=== PATIENT | male | born 1960 | race Caucasian/White ===

== ENCOUNTER 2020-07-24 10:25 | Emergency (ER) | payer OTHER, SELFPAY ==
--- NOTE | 2020-07-24 10:29 | CT_ITS ---
WS: [id number] CT HEAD TECHNIQUE: Noncontrast CT of the head obtained from the skullbase to the vertex. CLINICAL INFORMATION: head injury COMPARISON: None. DLP: 748.[address] scans at [facility] use at least one of these dose optimization techniques: automat ed exposure control; mA and/or kV adjustment per patient size (includes targeted exams where dose is matched to clinical indication); or iterative reconstruction. FINDINGS: No evidence of intracranial hemorrhage or mass effect. Ventricular system and basal cisterns are black nt. Mild small vessel changes with mild parenchymal volume loss. No extra-axial fluid collections. No evidence of mass or mass effect. Normal zamarripa-white differentiation. Soft tissue edema left parietal scalp. No visualized fractures. Fourth ventricle calcification. Paranasal sinuses and mastoid air cells are well aerated. .Normal visualized soft tissues. CT/CT head wo con* [id number] IMPRESSION: 1. No evidence of intracranial hemorrhage or mass effect. 2. Mild small vessel changes. Mild parenchymal volume loss. 3. Left parietal scalp edema 4. No acute intracranial findings.
--- NOTE | 2020-07-24 10:29 | W.ED.HEATRA ---
HPI - Head Injury General: Chief complaint: Head Injury Stated complaint: Hit in the Head/Severe Headache Time Seen by Provider: 07/24/20 10:29 History of Present Illness: HPI Narrative: 59-year-old male patient comes in today for injury to the left parietal scalp. 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 Patient did report brief loss of consciousness. Patient does take omeprazole routinely for gastritis. Patient also reports that he occasionally uses marijuana. Patient denies any chronic medication use or drugs. Patient states that injury occurred about 30 minutes prior to arrival to the ER. Patient has returned to baseline except for a severe headache . Patient appears well. Patient appears in mild pain. MD Complaint: head injury Onset (ago): minute(s) Mechanism of Injury: work related injury Place: work Loss of Consciousness: yes Location of injury: parietal Severity: moderate Quality: aching Radiation: none Associated symptoms: Reports no associated symptoms Review of Systems General: Reports: 10 or more systems reviewed and unremarkable except in HPI and below Skin/Breast: Reports: other (Left side scalp laceration) Neuro: Reports: other (Headache with brief loss of consciousness after head injury) PFS ED PFSH: Social History (Updated 06/14/19 @ 15:51 by Luisana Zuniga LPN) Smoking and tobacco status: current every day smoker Physical Exam Const: COMMON NORMALS: no acute distress and patient oriented x3 GENERAL APPEARANCE: cooperative HENMT: COMMON NORMALS: TM's normal bilaterally and Normal external nose present NOSE: Normal external nose present TYMPANIC MEMBRANE: TM's normal bilaterally MOUTH: Normal oral and palatal mucosa present THROAT: posterior oropharynx normal OTHER: 5mm laceration to the left parietal scalp, no crepitus to the wound area, Eye: GENERAL EYE: appearance normal, both eyes and all related structures Neck/C-Spine: COMMON NORMALS: full ROM Chest: COMMONS NORMALS: normal inspection of the chest Resp: COMMON NORMALS: normal respiratory effort EFFORT & INSPECTION: Yes able to speak in complete sentences Cardio: COMMON NORMALS: regular rate and regular rhythm RATE: regular rate RHYTHM: regular rhythm GI: COMMON NORMALS: non-tender Back/Pelvis: COMMON NORMALS: thoracic and lumbar spine normal to inspection Extremity: COMMON NORMALS: normal to inspection Neuro: COMMON NORMALS: patient oriented x3 and moves all extremities Psych: COMMON NORMALS: mental status grossly normal and cooperative Skin: COMMON NORMALS: no rashes or lesions noted GENERAL SKIN EXAM: no rashes or lesions noted Course Vital Signs: Vital signs: Vital Signs Temperature 97.7 F 07/24/20 10:31 Pulse Rate 81 07/24/20 10:31 Respiratory Rate 14 07/24/20 10:31 Blood Pressure 166/102 07/24/20 10:31 Pulse Oximetry 97 07/24/20 10:31 MDM - Head Injury MDM Narrative: Medical decision making narrative: 59-year-old male patient comes in today with complaints of head injury with brief loss of consciousness. Injury occurred about 30 minutes prior to arrival to the ER. Patient has fully recovered except for a headache on arrival to the ER. On exam we note a 5 mm laceration to the left parietal scalp. No crepitus along the injury border. Differential diagnosis includes but not limited to concussion, intracranial bleeding, scalp laceration, hematoma. CT scan of the head indicated no intracranial or intercerebral bleeding. There is also no fracture noted. Reviewed exam with patient with recommendations for treatment and follow-up. Patient reported understanding and agreed to plan. Discharge Plan Discharge Patient Disposition: Home Clinical Impression: Head injury, acute, with loss of consciousness Qualifiers: Encounter type: initial encounter Qualified Code(s): S06.9X9A - Unspecified intracranial injury with loss of consciousness of unspecified duration, initial encounter Superficial laceration of scalp Qualifiers: Encounter type: initial encounter Qualified Code(s): S01.01XA - Laceration without foreign body of scalp, initial encounter Condition: Stable Prescriptions: No Action omeprazole 20 mg capsule,delayed release(DR/EC) 20 mg PO DAILY RF: 0 ibuprofen 800 mg tablet 1,600 mg PO DAILY RF: 0 cyclobenzaprine 10 mg tablet 10 mg PO Q8H RF: 0 Symbicort 160-4.5 mcg/actuation HFA aerosol inhaler 2 puff INHALATION BID RF: 0 albuterol sulfate [ProAir HFA] 90 mcg/actuation HFA aerosol inhaler 2 puff INHALATION Q6H PRNRF: 0 aspirin [Adult Aspirin Regimen] 81 mg tablet,delayed release (DR/EC) 81 mg PO DAILY RF: 0 Discharge Orders: Discharge ED (Routine); Ordered 07/24/20 Ordered By: Alireza Esqueda Discharge Diet: Usual diet Discharge Activity: Increase activity as tolerated Patient Instructions: Minor Head Injury (ED), Opioid Safety Activity Restrictions/Additional Instructions: Use acetaminophen or ibuprofen for pain. Use ice to the area for further comfort relief. Activity as tolerated. I would recommend light activity for the next 7 days until headache is completely resolved. Follow-up with primary care in 1 week for recheck of symptoms and released to return to normal activity. Stand Alone Forms: Work/School Release Coding Level of Care Code ED Manager Business Intelligence for Chg Fwd Exam Comprehensive
[2020-07-24 10:31] VITALS: BP 166/102; PULSE 81; RESP 14; TEMP 36.5; O2SAT 97; BMI 20.9
[2020-07-24 11:23] VITALS: BP 152/90; PULSE 76; RESP 17; O2SAT 96
== END 2020-07-24 11:24 | disposition home or self-care (01) ==
PROVIDERS: Emergency Provider Nurse Practitioner Family
DX: S01.01XA Laceration without foreign body of scalp, initial encounter (principal); S06.9X9A Unspecified intracranial injury with loss of consciousness of unspecified duration, initial encounter; Z79.82 Long term (current) use of aspirin; F17.210 Nicotine dependence, cigarettes, uncomplicated; W20.8XXA Other cause of strike by thrown, projected or falling object, initial encounter
CPT/HCPCS: 70450; 99282

== ENCOUNTER 2020-10-23 08:40 | Emergency (ER) | payer OTHER, SELFPAY ==
--- NOTE | 2020-10-23 08:46 | XRR_ITS ---
PROCEDURE INFORMATION: Exam: XR Chest Exam date and time: 10/23/2020 8:46 AM Age: 60 years old Clinical indication: Pain; Angina pectoris; Additional info: Chest pain TECHNIQUE: Imaging protocol: XR of the chest. Views: 1 view. COMPARISON: No relevant prior studies available. FINDINGS: Lungs: Unremarkable. No consolidation. Pleural spaces: Unremarkable. No pleural effusion. No pneumothorax. Heart/Mediastinum: Unremarkable. No cardiomegaly. Bones/joints: Unremarkable. XR/XR chest 1V portable [id number] IMPRESSION: No acute findings.
[2020-10-23 08:51] VITALS: BP 155/89; PULSE 76; RESP 19; TEMP 36.8; O2SAT 99
--- NOTE | 2020-10-23 08:59 | W.ED.SOB ---
HPI - SOB/Dyspnea General: Chief Complaint: Chest Pain Stated Complaint: CP/SOB/FATIGUE SENT FROM [place] Time Seen by Provider: 10/23/20 08:45 Source: patient Mode of arrival: ambulatory Limitations: no limitations History of Present Illness: HPI Narrative: Patient is a nice 60-year-old gentleman here for complaints of shortness of breath that has been present over the past week. He states symptoms seem to be progressively worsening. He tells me he is becoming very winded with activities in which he normally would not be. He is an every day smoker. He believes he most likely has COPD however this is not officially ever been diagnosed. He does not wear oxygen at home. He does report an increased cough. This morning he became concerned when he began having some chest pain-he states it felt like his heart was racing . Patient reports no history of cardiac disease but does have a family history. He has not been running fevers. MD elicited complaint: shortness of breath, cough and chest pain Pertinent past history: COPD (possible-never officially diagnosed ) Onset (ago): day(s) Exacerbating factors: exertion Relieving factors: rest Associated symptoms: Reports chest congestion and chest pain; Deny abdominal pain, dizziness, fever(s), hemoptysis, lightheadedness, nausea, orthopnea, palpitations, syncope or vomiting Treatment prior to arrival: none Related Data: Home oxygen amount: none Review of Systems Const: Reports: chills (last nigh) and body aches (states he always hurts but attributes this to working); Denies: fever(s), change in appetite, change in weight, fatigue or malaise ENMT: Denies: throat pain, odynophagia, nasal discharge or nasal congestion Card: Reports: chest pain and dyspnea on exertion; Denies: palpitations, edema, swelling of feet/ankles, lightheadedness, syncope, pre-syncope, orthopnea, leg pain with exertion or acrocyanosis Resp: Reports: dyspnea, productive cough and chest congestion; Denies: wheezing, pain on inspiration or hemoptysis GI: Denies: abdominal pain, nausea, vomiting or diarrhea Musc: Denies: neck pain or back pain Skin/Breast: Denies: rash Neuro: Denies: headache(s), numbness in extremities, weakness in extremities, sensory changes or dizziness PFSH ED PFSH: Social History (Updated 06/14/19 @ 15:51 by Luisana Zuniga LPN) Smoking and tobacco status: current every day smoker Physical Exam Const: COMMON NORMALS: no acute distress, average body habitus, patient oriented x3, no limitations, alert and well nourished GENERAL APPEARANCE: cooperative ORIENTATION/CONSCIOUSNESS: Yes awake, Yes oriented to person, Yes oriented to place and Yes oriented to time HENMT: COMMON NORMALS: normocephalic and atraumatic HEAD & SCALP: normocephalic and atraumatic Resp: COMMON NORMALS: normal respiratory effort and clear to auscultation bilaterally AUSCULTATION: clear to auscultation bilaterally Cardio: COMMON NORMALS: regular rate and regular rhythm RATE: regular rate RHYTHM: regular rhythm Extremity: COMMON NORMALS: capillary refill normal, no clubbing, cyanosis or edema, no calf tenderness and no pedal edema Neuro: COMMON NORMALS: patient oriented x3 SENSORIUM/ORIENTATION: Yes alert, Yes oriented to person, Yes oriented to place and Yes oriented to time Skin: COMMON NORMALS: no rashes or lesions noted GENERAL SKIN EXAM: no rashes or lesions noted Course Vital Signs: Vital signs: Vital Signs Temperature 98.4 F 10/23/20 10:00 Pulse Rate 73 10/23/20 12:53 Respiratory Rate 24 H 10/23/20 10:00 Blood Pressure 144/91 10/23/20 12:53 Pulse Oximetry 99 10/23/20 12:53 MDM - SOB/Dyspnea MDM Narrative: Medical decision making narrative: Patient clinically is non-ill and nontoxic appearing. He appears in no respiratory distress. Patient CBC and CMP are non-concerning. He has normal procalcitonin. Baseline troponin is normal. He did have an elevated D-dimer at over 2.0. CTA showing no PE. Initial EKG and repeat show no ischemic changes. Rapid COVID is negative. PCR pending. CXR showing chronic emphysema but no acute changes. At this time we will treat for possible COPD exacerbation with steroids and antibiotics. Patient has inhaled corticosteroids and albuterol at home. Recommend close follow-up with his PCP if symptoms persist or worsen. He may return to the ED for severe symptoms. Lab Data: Labs: Lab Results 10/23/20 10/23/20 10/23/20 Range/Units 09:20 09:20 09:20 WBC 6.8 (4.0-10.0) 10^3/ uL RBC 4.48 (4.1-5.3) 10^6/u L Hgb 13.9 (11.7-16.6) g/dL Hct 41.9 L (42.0-52.0) % MCV 93.5 (80-94) fL MCH 31.0 (28.0-34.0) pg MCHC 33.2 (30.0-36.0) g/dL RDW 14.1 (12.1-15.1) % Plt Count 289 (130-400) 10^3/c mm MPV 8.6 (7.4-10.4) fL Neut % (Auto) 68.0 % Lymph % (Auto) 19.7 % [place] % (Auto) 10.1 % Eos % (Auto) 1.2 % Baso % (Auto) 0.9 % Neut # (Auto) 4.60 (1.8-7.7) 10^3/u L Lymph # (Auto) 1.3 (0.8-4.8) 10^3/u L [place] # (Auto) 0.7 (0.2-0.9) 10^3/u L Eos # (Auto) 0.1 (0.0-0.8) 10^3/u L Baso # (Auto) 0.1 (0.0-0.1) 10^3/u L Nucleated RBC % (a uto) 0 % Nucleated RBCs # 0.0 /100WBC D-Dimer (0-0.59) ug/mIFE U Sodium 138 (136-145) mmol/L Potassium 4.4 (3.5-5.1) mmol/L Chloride 101 (98-107) mmol/L Carbon Dioxide 18 L (22-29) mmol/L Anion Gap 23.4 H (5-19) BUN 11 (6-20) mg/dL Creatinine 0.7 (0.7-1.2) mg/dL GFR Calculation 115.4 (90-130) mL/min Glucose 67 (65-115) mg/dL Calculated Osmolal ity 284 L (285-295) mOsm/k g Calcium 8.3 L (8.5-10.5) mg/dL Total Bilirubin 0.4 (0.15-1.2) mg/dL AST 40 (0-40) U/L ALT 20 (0-41) U/L Alkaline Phosphata se 68 (40-130) IU/L Troponin T Baselin e 11 (0-15) ng/L Total Protein 7.6 (6.6-8.7) g/dL Albumin 4.2 (3.5-5.2) g/dL Globulin 3.4 (1.3-4.6) g/dL Procalcitonin 0.07 (0-0.5) ng/mL SARS-CoV-2 Ag (Rap id) (Negative) 10/23/20 10/23/20 Range/Units 09:20 09:25 WBC (4.0-10.0) 10^3/ uL RBC (4.1-5.3) 10^6/u L Hgb (11.7-16.6) g/dL Hct (42.0-52.0) % MCV (80-94) fL MCH (28.0-34.0) pg MCHC (30.0-36.0) g/dL RDW (12.1-15.1) % Plt Count (130-400) 10^3/c mm MPV (7.4-10.4) fL Neut % (Auto) % Lymph % (Auto) % [place] % (Auto) % Eos % (Auto) % Baso % (Auto) % Neut # (Auto) (1.8-7.7) 10^3/u L Lymph # (Auto) (0.8-4.8) 10^3/u L [place] # (Auto) (0.2-0.9) 10^3/u L Eos # (Auto) (0.0-0.8) 10^3/u L Baso # (Auto) (0.0-0.1) 10^3/u L Nucleated RBC % (a uto) % Nucleated RBCs # /100WBC D-Dimer 2.07 H (0-0.59) ug/mIFE U Sodium (136-145) mmol/L Potassium (3.5-5.1) mmol/L Chloride (98-107) mmol/L Carbon Dioxide (22-29) mmol/L Anion Gap (5-19) BUN (6-20) mg/dL Creatinine (0.7-1.2) mg/dL GFR Calculation (90-130) mL/min Glucose (65-115) mg/dL Calculated Osmolal ity (285-295) mOsm/k g Calcium (8.5-10.5) mg/dL Total Bilirubin (0.15-1.2) mg/dL AST (0-40) U/L ALT (0-41) U/L Alkaline Phosphata se (40-130) IU/L Troponin T Baselin e (0-15) ng/L Total Protein (6.6-8.7) g/dL Albumin (3.5-5.2) g/dL Globulin (1.3-4.6) g/dL Procalcitonin (0-0.5) ng/mL SARS-CoV-2 Ag (Rap id) Negative (Negative) Imaging Data^: CXR: My impression: most likely emphysematous changes; no acute findings Radiologist's impression: [address] [address]JUcl ReportSigned Patient: Rogelio Knott IIUnit #: [id number]: 1960cct#:[id number]/Sex: 60 / MADM Date: 10/23/20[facility] Dr: Ordering Provider/Ordering MD: Sharifa Glynn Date of Service: 10/23/20 Procedure(s): XR chest 1V portable [id number] Accession Number(s): [id number] Report Number: [id number] PROCEDURE INFORMATION: Exam: XR Chest Exam date and time: 10/23/2020 8:46 AM Age: 60 years old Clinical indication: Pain; Angina pectoris; Additional info: Chest pain TECHNIQUE: Imaging protocol: XR of the chest. Views: 1 view. COMPARISON: No relevant prior studies available. FINDINGS: Lungs: Unremarkable. No consolidation. Pleural spaces: Unremarkable. No pleural effusion. No pneumothorax. Heart/Mediastinum: Unremarkable. No cardiomegaly. Bones/joints: Unremarkable. XR/XR chest 1V portable [id number] IMPRESSION: No acute findings. Dictated By:Jose Dickson MDSigned By:Jose Dickson MDSigned Date/Time:10/23/20 1009DD/ 1008 CTA Chest: Radiologist's impression: [address] [address] [address] Scan Report Signed Patient: Rogelio Knott II Unit #: [id number] : 1960 Age/Sex: 60 / M ADM Date: 10/23/20 Loc: ER Room/Bed: Attending Dr: Ordering Provider/Ordering MD: Sharifa Glynn Date of Service: 10/23/20 Procedure(s): CT angio chest PE protcl [id number] Accession Number(s): [id number] Report Number: [id number] WS: [id number] CTA OF THE CHEST WITH PULMONARY EMBOLISM PROTOCOL TECHNIQUE: High-resolution contrast enhanced CTA of the chest with coronal and sagittal reformatted images with pulmonary embolism protocol. MIP images are also reviewed. CLINICAL INFORMATION: SOB, elevated d dimer COMPARISON: None. DLP: 547.[address] scans at [facility] use at least one of these dose optimization techniques: automated exposure control; mA and/or kV adjustment per patient size (includes targeted exams where dose is matched to clinical indication); or iterative reconstruction. FINDINGS: Mild chronic emphysematous changes. No acute pulmonary infiltrates. No focal consolidation or pleural fluid. Proximal main pulmonary arteries are normal. Normal segmental and subsegmental pulmonary arteries. No evidence of pulmonary embolus. Normal caliber thoracic aorta. No mediastinal or hilar lymphadenopathy. Adrenal glands are normal. Cholecystectomy clips. CT/CT angio chest PE protcl [id number] IMPRESSION: 1. Proximal main pulmonary arteries are normal. No evidence of pulmonary embolus. 2. Mild chronic emphysematous changes. No acute pulmonary infiltrates. No focal pneumonia or pleural fluid. 3. Prior cholecystectomy. Dictated By: Miguel Medrano MD Signed By: Miguel Medrano MD Signed Date/Time: 10/23/20 1230 DD/ 1220 EKG Data^: EKG 1: EKG Interpretation Date: 10/23/20 EKG interpretation time: 08:54 Interpretation: Sinus rhythm with sinus arrhythmia Rate [address] elevation or depression changes noted EKG 2: EKG Interpretation Date: 10/23/20 Interpretation: Sinus rhythm Rate [address] elevation or depression changes noted No changes noted when compared to EKG performed earlier on same visit Discharge Plan Discharge Patient Disposition: Home Clinical Impression: Acute bacterial bronchitis Condition: Stable Prescriptions: New dexamethasone 6 mg tablet 6 mg PO DAILY Qty: 6 RF: 0 levofloxacin 500 mg tablet 500 mg PO DAILY 7 Days Qty: 7 RF: 0 No Action omeprazole 20 mg capsule,delayed release(DR/EC) 20 mg PO DAILY RF: 0 ibuprofen 800 mg tablet 1,600 mg PO DAILY RF: 0 cyclobenzaprine 10 mg tablet 10 mg PO Q8H RF: 0 Symbicort 160-4.5 mcg/actuation HFA aerosol inhaler 2 puff INHALATION BID RF: 0 albuterol sulfate [ProAir HFA] 90 mcg/actuation HFA aerosol inhaler 2 puff INHALATION Q6H PRNRF: 0 aspirin [Adult Aspirin Regimen] 81 mg tablet,delayed release (DR/EC) 81 mg PO DAILY RF: 0 Discharge Orders: Discharge ED (Routine); Ordered 10/23/20 Ordered By: Sharifa Glynn Activity Restrictions/Additional Instructions: As we discussed you need to quarantine until your PCR COVID results return. If negative you may return to work. If positive you need to quarantine for a full 10 days starting at symptom onset. You may follow-up with primary care in 3 to 5 days if symptoms persist or are not improving. He may return to the emergency department for severe shortness of breath or difficulty breathing. Coding Level of Care Code ED Salon Customer Experience Specialist for Esmer Black Exam Detailed
[2020-10-23 09:26] VITALS: BP 150/90; O2SAT 98
[2020-10-23 09:35] LABS: Basophils # 0.1 10^3/uL (0.0-0.1); Basophils % 0.9 %; Eosinophils # 0.1 10^3/uL (0.0-0.8); Eosinophils % 1.2 %; Hematocrit 41.9 % (42.0-52.0); Hemoglobin 13.9 g/dL (11.7-16.6); Lymphocytes # 1.3 10^3/uL (0.8-4.8); Lymphocytes % 19.7 %; Mean Corpuscular HGB Conc 33.2 g/dL (30.0-36.0); Mean Corpuscular Volume 93.5 fL (80-94); Mean Platelet Volume 8.6 fL (7.4-10.4); Monocytes # 0.7 10^3/uL (0.2-0.9); Monocytes % 10.1 %; Nucleated Red Blood Cells % 0 %; Platelet Count 289 10^3/cmm (130-400); Red Blood Count 4.48 10^6/uL (4.1-5.3); Red Cell Distribution Width 14.1 % (12.1-15.1); White Blood Count 6.8 10^3/uL (4.0-10.0)
[2020-10-23 09:50] LABS: D Dimer 2.07 ug/mIFEU (0-0.59)
[2020-10-23 10:00] VITALS: BP 146/92; PULSE 75; RESP 24; TEMP 36.9; O2SAT 98
--- NOTE | 2020-10-23 10:01 | CT_ITS ---
WS: [id number] CTA OF THE CHEST WITH PULMONARY EMBOLISM PROTOCOL TECHNIQUE: High-resolution contrast enhanced CTA of the chest with coronal and sagittal reformatted i mages with pulmonary embolism protocol. MIP images are also reviewed. CLINICAL INFORMATION: SOB, elevated d dimer COMPARISON: None. DLP: 547.[address] scans at [facility] use at least one of these dose optimization techniques: automat ed exposure control; mA and/or kV adjustment per patient size (includes targeted exams where dose is matched to clinical indication); or iterative reconstruction. FINDINGS: Mild chronic emphysematous changes. No acute pulmonary infiltrates. No focal consolidation or pleural fluid. Proximal main pulmonary arteries are normal. Normal segmental and subsegmental pulmonary arteries. No evidence of pulmonary embolus. Normal caliber thoracic aorta. No mediastinal or hilar lymphadenopathy. Adrenal glands are normal. Ch olecystectomy clips. CT/CT angio chest PE protcl [id number] IMPRESSION: 1. Proximal main pulmonary arteries are normal. No evidence of pulmonary embol us. 2. Mild chronic emphysematous changes. No acute pulmonary infiltrates. No foca l pneumonia or pleural fluid. 3. Prior cholecystectomy.
[2020-10-23 10:02] LABS: Troponin(5th) Baseline 11 ng/L (0-15)
[2020-10-23 10:09] LABS: Procalcitonin 0.07 ng/mL (0-0.5)
[2020-10-23 10:11] LABS: SARS Covid-2 Antigen Negative (Negative)
[2020-10-23 10:20] LABS: Albumin Level 4.2 g/dL (3.5-5.2); Blood Urea Nitrogen 11 mg/dL (6-20); Globulin 3.4 g/dL (1.3-4.6); Glomerular Filtration Rate 115.4 mL/min (90-130); Glucose 67 mg/dL (65-115); Total Bilirubin 0.4 mg/dL (0.15-1.2); Total Protein 7.6 g/dL (6.6-8.7)
[2020-10-23 10:39] LABS: Alanine Aminotransferase 20 U/L (0-41); Alkaline Phosphatase 68 IU/L (40-130); Aspartate Amino Transferase 40 U/L (0-40); Chloride 101 mmol/L (98-107); Osmolality Calculated 284 mOsm/kg (285-295); Potassium 4.4 mmol/L (3.5-5.1); Sodium 138 mmol/L (136-145)
[2020-10-23 10:42] LABS: Anion Gap 23.4 (5-19); Calcium 8.3 mg/dL (8.5-10.5); Carbon Dioxide 18 mmol/L (22-29)
--- NOTE | 2020-10-23 10:46 | ECG_ITS ---
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 Measurements Intervals [place] Rate: 64 P: 77 WI: 151 QRS: 64 QRSD: 84 T: 74 QT: 398 QTc: 413 Interpretive Statements SINUS RHYTHM No previous ECG available for comparison Electronically Signed On 10-23-2020 17:32:15 CDT by Alfie Medeiros M.D. [id number]
[2020-10-23] MEDS: iohexol 350 mg/mL 100 mL Btl IV (12:16)
[2020-10-23 12:30] VITALS: BP 151/87; PULSE 74; O2SAT 97
[2020-10-23 12:53] VITALS: BP 144/91; PULSE 73; O2SAT 99
[2020-10-24 14:14] LABS: Coronavirus Test Green County Not Detected
--- NOTE | 2020-10-24 18:02 | PC.NURSE ---
PT CALLED AND GIVEN THE RESULTS OF HIS COVID TEST
== END 2020-10-23 12:50 | disposition home or self-care (01) ==
PROVIDERS: Emergency Provider Physician Assistant
DX: J20.9 Acute bronchitis, unspecified (principal); Z79.82 Long term (current) use of aspirin; F17.210 Nicotine dependence, cigarettes, uncomplicated; Z20.822 Contact with and (suspected) exposure to COVID-19
CPT/HCPCS: 71045; 71275; 80053; 84145; 84484; 85025; 85378; 87426; 87635; 93005; 99283; Q9967

== ENCOUNTER → 2020-11-13 09:00 | Outpatient (BNVA) | payer OTHER, SELFPAY | PROVIDERS: Visit Provider Nurse Practitioner Family | DX: Z20.822 Contact with and (suspected) exposure to COVID-19 (principal) | CPT/HCPCS: 87426 ==

== ENCOUNTER 2022-04-19 19:23 | Emergency (ER) | payer OTHER, SELFPAY ==
[2022-04-19 19:28] VITALS: BMI 22.5
--- NOTE | 2022-04-19 19:44 | CTR_ITS ---
PROCEDURE INFORMATION: Exam: CT Head Without Contrast Exam date and time: 04/19/2022 8:42 PM Age: 61 years old Clinical indication: Injury or trauma; Other: Hit in head with piece of lumber; Blunt trauma (contusions or hematomas); Consciousness not specified; Additional info: Head injury TECHNIQUE: Imaging protocol: Computed tomography of the head without contrast. Radiation optimization: All CT scans at this facility use at least one of these dose optimization techniques: automated exposure control; mA and/or kV adjustment per patient size (includes targeted exams where dose is matched to clinical indication); or iterative reconstruction. Other protocol: This patient has received 0 known CTs and 0 known cardiac nuclear medicine studies in the 12 months prior to the current study. COMPARISON: CT head wo con* [id number] 07/24/2020 10:44 AM RADIATION DOSE METRICS: Total DLP (mGy-cm): 1146.98 FINDINGS: Brain: Moderate periventricular white matter low densities are most consistent with chronic small vessel ischemic change. No findings of intracranial hemorrhage. Cerebral ventricles: No ventriculomegaly. Paranasal sinuses: Retention cyst is seen in right maxillary sinus and there is mild sinus mucosal thickening. No evident free fluid. Mastoid air cells: Visualized mastoid air cells are well aerated. Bones/joints: No acute findings. Soft tissues: Unremarkable. CT/CT head wo con* [id number] IMPRESSION: No acute intracranial abnormality.
--- NOTE | 2022-04-19 19:44 | ECG_ITS ---
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 Measurements Intervals [place] Rate: 82 P: 76 NE: 156 QRS: 65 QRSD: 87 T: 78 QT: 375 QTc: 438 Interpretive Statements SINUS RHYTHM Compared to ECG 10/23/2020 10:57:18 No significant changes Electronically Signed On 04-19-2022 23:24:39 WEED ERADICATOR by Alfie Medeiros M.D. [email or web address]Ltdlackey memorial hospitalTeleFlipmount [email or web address]/store/[id number]
[2022-04-19 21:17] LABS: Basophils # 0.1 10^3/uL (0.0-0.1); Basophils % 0.8 %; Eosinophils # 0.4 10^3/uL (0.0-0.8); Eosinophils % 4.4 %; Hematocrit 43.4 % (42.0-52.0); Hemoglobin 14.4 g/dL (11.7-16.6); Lymphocytes % 20.6 %; Mean Corpuscular HGB Conc 33.2 g/dL (30.0-36.0); Mean Corpuscular Hemoglobin 29.6 pg (28.0-34.0); Mean Corpuscular Volume 89.3 fl (80-94); Mean Platelet Volume 8.7 fL (7.4-10.4); Monocytes # 0.9 10^3/uL (0.2-0.9); Monocytes % 8.7 %; Neutrophils # 6.32 10^3/uL (1.8-7.7); Neutrophils % 64.6 %; Nucleated Red Blood Cells % 0 %; Platelet Count 314 10^3/cmm (130-400); Red Blood Count 4.86 10^6/uL (4.1-5.3); Red Cell Distribution Width 13.1 % (12.1-15.1); White Blood Count 9.8 10^3/uL (4.0-10.0)
[2022-04-19 21:45] LABS: Alanine Aminotransferase 18 U/L (0-41); Albumin Level 4.3 g/dL (3.5-5.2); Alkaline Phosphatase 126 U/L (40-130); Anion Gap 20.3 (5-19); Aspartate Amino Transferase 21 U/L (0-40); Blood Urea Nitrogen 8 mg/dL (8-23); Calcium 9.7 mg/dL (8.5-10.5); Carbon Dioxide 22 mmol/L (22-29); Chloride 98 mmol/L (98-107); Globulin 3.3 g/dL (1.3-4.6); Glomerular Filtration Rate 86.1 mL/min (90-130); Glucose 104 mg/dL (65-115); Osmolality Calculated 283 mOsm/kg (285-295); Potassium 3.3 mmol/L (3.5-5.1); Sodium 137 mmol/L (136-145); Total Bilirubin 0.7 mg/dL (0.15-1.2); Total Protein 7.6 g/dL (6.6-8.7)
--- NOTE | 2022-04-19 21:52 | ED_ITS ---
HPI - Syncope General: Chief Complaint: Syncope Stated Complaint: fall, hit head and passed out Time Seen by Provider: 04/19/22 20:39 Source: patient Mode of arrival: ambulatory Limitations: no limitations History of Present Illness: 61-year-old male states that yesterday he had had a syncopal episode he believes is unsure if he actually tripped and fell and hit his head and passed out or passed out first states that he did hit his head on a counter he states since then he had some lightheadedness and a headache he rates a 5 out of 10 he does have chronic headaches well denies any chest pain he is amatory no difficulty denies any other complaints. Associated symptoms: Reports headache(s); Deny abdominal pain, fever(s) or nausea Review of Systems Const: Denies: fever(s), chills, body aches or change in appetite Eyes: Denies: blurry vision or eye discomfort ENMT: Denies: throat pain or dental pain Card: Reports: syncope Resp: Denies: dyspnea GI: Denies: abdominal pain, nausea, vomiting or diarrhea : Denies: dysuria Musc: Denies: neck pain or back pain Skin/Breast: Denies: rash Neuro: Reports: headache(s) Psych: Denies: depression Ham/Lymph: Denies: easy bruising All/Imm: Denies: urticaria PFS ED PFSH: Medical History (Updated 04/19/22 @ 21:57 by Masha Villanueva MD) No pertinent past medical history Social History Smoking and tobacco status: current every day smoker Alcohol intake: current Alcohol intake frequency: 0-2 Drinks per Day Physical Exam Const: COMMON NORMALS: no acute distress, patient oriented x3 and healthy appearing HENMT: COMMON NORMALS: normocephalic and atraumatic HEAD & SCALP: normocephalic and atraumatic Eye: COMMON NORMALS: Equal, round and reactive pupils present and EOMs intact bilaterally PUPIL: Yes Equal, round and reactive pupils present Neck/C-Spine: COMMON NORMALS: full ROM and supple Chest: COMMONS NORMALS: normal inspection of the chest and normal palpation of entire chest wall Resp: COMMON NORMALS: normal respiratory effort, No retractions, No use of accessory muscles and clear to auscultation bilaterally AUSCULTATION: clear to auscultation bilaterally Cardio: COMMON NORMALS: regular rate, regular rhythm and No murmurs present (Cardio) RATE: regular rate RHYTHM: regular rhythm GI: COMMON NORMALS: Normal to inspection, nondistended, normoactive bowel sounds present, Soft to palpation, non-tender and no masses PALPATION: Yes Soft to palpation Extremity: COMMON NORMALS: normal to inspection and full ROM Neuro: COMMON NORMALS: patient oriented x3, moves all extremities and no focal motor deficits Psych: COMMON NORMALS: mental status grossly normal, Normal thought process present and cooperative THOUGHT PROCESS: Normal thought process present Skin: COMMON NORMALS: no rashes or lesions noted and no wounds GENERAL SKIN EXAM: no rashes or lesions noted MDM - Syncope Medical Decision Making Patient presents here with a closed head injury along with a syncopal event patient's blood work EKG were all normal his head CT is normal as well he is stable for discharge he is to follow-up with PCP and return if worsening. Lab Data 04/19/22 21:05 04/19/22 21:[address] 04/19/22 19:44 IMPRESSION: No acute intracranial abnormality. Laboratory Results WBC 9.8 10^3/uL (4.0-10.0) 04/19/22 21:05 RBC 4.86 10^6/uL (4.1-5.3) 04/19/22 21:05 Hgb 14.4 g/dL (11.7-16.6) 04/19/22 21: Hct 43.4 % (42.0-52.0) 04/19/22 21: MCV 89.3 fl (80-94) 04/19/22 21:05 MCH 29.6 pg (28.0-34.0) 04/19/22 21: MCHC 33.2 g/dL (30.0-36.0) 04/19/22 21: RDW 13.1 % (12.1-15.1) 04/19/22 21:05 Plt Count 314 10^3/cmm (130-400) 04/19/22 21: MPV 8.7 fL (7.4-10.4) 04/19/22 21:05 Neut % (Auto) 64.6 % 04/19/22 21:05 Lymph % (Auto) 20.6 % 04/19/22 21:05 [place] % (Auto) 8.7 % 04/19/22 21:05 Eos % (Auto) 4.4 % 04/19/22 21:05 Baso % (Auto) 0.8 % 04/19/22 21:05 Neut # (Auto) 6.32 10^3/uL (1.8-7.7) 04/19/22 21:05 Lymph # (Auto) 2.0 10^3/uL (0.8-4.8) 04/19/22 21:05 [place] # (Auto) 0.9 10^3/uL (0.2-0.9) 04/19/22 21:05 Eos # (Auto) 0.4 10^3/uL (0.0-0.8) 04/19/22 21:05 Baso # (Auto) 0.1 10^3/uL (0.0-0.1) 04/19/22 21:05 Nucleated RBC % (auto) 0 % 04/19/22 21:05 Nucleated RBCs # 0.0 /100WBC 04/19/22 21:05 Sodium 137 mmol/L (136-145) 04/19/22 21:05 Potassium 3.3 mmol/L (3.5-5.1) L 04/19/22 21:05 Chloride 98 mmol/L (98-107) 04/19/22 21:05 Carbon Dioxide 22 mmol/L (22-29) 04/19/22 21:05 Anion Gap 20.3 (5-19) H 04/19/22 21:05 BUN 8 mg/dL (8-23) 04/19/22 21:05 Creatinine 0.9 mg/dL (0.7-1.2) 04/19/22 21:05 GFR Calculation 86.1 mL/min (90-130) L 04/19/22 21:05 Glucose 104 mg/dL (65-115) 04/19/22 21:05 Calculated Osmolality 283 mOsm/kg (285-295) L 04/19/22 21:05 Calcium 9.7 mg/dL (8.5-10.5) 04/19/22 21:05 Total Bilirubin 0.7 mg/dL (0.15-1.2) 04/19/22 21:05 AST 21 U/L (0-40) 04/19/22 21:05 ALT 18 U/L (0-41) 04/19/22 21:05 Alkaline Phosphatase 126 U/L (40-130) 04/19/22 21:05 Total Protein 7.6 g/dL (6.6-8.7) 04/19/22 21:05 Albumin 4.3 g/dL (3.5-5.2) 04/19/22 21:05 Globulin 3.3 g/dL (1.3-4.6) 04/19/22 21:05 Discharge Plan Discharge Patient Disposition: Home Clinical Impression: Head injury, Syncope Condition: Stable Prescriptions: No Action omeprazole 20 mg capsule,delayed release(DR/EC) 20 mg PO DAILY ibuprofen 800 mg tablet 1,600 mg PO DAILY Symbicort 160-4.5 mcg/actuation HFA aerosol inhaler 2 puff INHALATION BID albuterol sulfate [ProAir HFA] 90 mcg/actuation HFA aerosol inhaler 2 puff INHALATION Q6H PRN aspirin [Adult Aspirin Regimen] 81 mg tablet,delayed release (DR/EC) 81 mg PO DAILY Spiriva Respimat 1.25 mcg/actuation mist 2 puff inhalation DAILY Discharge Orders: Discharge ED (Routine); Ordered 04/19/22 Ordered By: Masha Villanueva Discharge Diet: Advance as tolerated Discharge Activity: Resume usual activity Patient Instructions: Syncope (ED), Head Injury (ED) Coding Level of Care Code ED Special Certificate Dictator for Esmer Fwfallon Exam Comprehensive
[2022-04-19 22:10] VITALS: BP 118/79; PULSE 85; RESP 16; O2SAT 94
== END 2022-04-19 22:16 | disposition home or self-care (01) ==
PROVIDERS: Emergency Provider Emergency Medicine
DX: R55 Syncope and collapse (principal); S09.90XA Unspecified injury of head, initial encounter; Z79.82 Long term (current) use of aspirin; F17.210 Nicotine dependence, cigarettes, uncomplicated; W01.0XXA Fall on same level from slipping, tripping and stumbling without subsequent striking against object, initial encounter
CPT/HCPCS: 70450; 80053; 85025; 93005; 99285

== ENCOUNTER 2024-07-19 10:42 | Emergency (ER) | payer OTHER, SELFPAY ==
[2024-07-19 10:44] VITALS: BP 149/79; PULSE 75; TEMP 36.4; O2SAT 99; BMI 19.3
--- NOTE | 2024-07-19 10:59 | ECG_ITS ---
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 Measurements Intervals [place] Rate: 72 P: 83 WA: 183 QRS: 62 QRSD: 72 T: 77 QT: 356 QTc: 390 Interpretive Statements SINUS RHYTHM ANTEROSEPTAL MYOCARDIAL INFARCTION , OF INDETERMINATE AGE [40+ ms Q WAVE IN V1-V4] Compared to ECG 04/19/2022 21:52:20 Myocardial infarct finding now present Electronically Signed On 07-19-2024 11:54:53 CDT by Alfie Medeiros M.D. [id number]
--- NOTE | 2024-07-19 10:59 | XR_ITS ---
WS: [id number] XR chest 1V portable [id number] REASON FOR EXAM: chest pain FINDINGS: Moderate tortuosity of the thoracic aorta with minimal aortic arch calcification. Normal heart size. Calcified granulomatous disease in both hemithoraces. Small density in the lower lung rocha felt to represent overlapping nipple and ribs. No acute pulmonary parenchymal or pleural abnormality is identified. Chest is relatively unchanged compared to 10/23/2020. XR/XR chest 1V portable [id number] IMPRESSION: Stable chest without acute abnormality. Hyperexpansion.
[2024-07-19 11:55] LABS: Basophils % 0.5 %; Eosinophils # 0.1 10^3/uL (0.0-0.8); Eosinophils % 1.8 %; Hematocrit 38.4 % (37-53); Lymphocytes # 1.2 10^3/uL (0.8-4.8); Lymphocytes % 15.6 %; Mean Corpuscular HGB Conc 33.6 g/dL (30-55); Mean Corpuscular Hemoglobin 30.1 pg (27-33); Mean Corpuscular Volume 89.7 fl (82-101); Monocytes # 0.7 10^3/uL (0.2-0.9); Monocytes % 9.4 %; Neutrophils # 5.58 10^3/uL (1.8-7.7); Neutrophils % 72.2 %; Nucleated Red Blood Cells % 0 %; Platelet Count 257 10^3/cmm (157-399); Red Blood Count 4.28 10^6/uL (3.85-5.65); Red Cell Distribution Width 14.7 % (12.1-15.1); White Blood Count 7.74 10^3/uL (3.29-11.43)
[2024-07-19 12:17] LABS: Alanine Aminotransferase 29 U/L (0-41); Albumin Level 4.3 g/dL (3.5-5.2); Alkaline Phosphatase 138 U/L (40-130); Anion Gap 16.1 (5-19); Aspartate Amino Transferase 43 U/L (0-40); Blood Urea Nitrogen 4 mg/dL (8-23); Calcium 9.5 mg/dL (8.5-10.5); Carbon Dioxide 26 mmol/L (22-29); Chloride 89 mmol/L (98-107); Creatinine Clr Calc Pharmacy 86.7783; Globulin 3.2 g/dL (1.3-4.6); Glucose 85 mg/dL (65-115); Lipase 46 U/L (13-60); Osmolality Calculated 260 mOsm/kg (285-295); Potassium 4.1 mmol/L (3.5-5.1); Sodium 127 mmol/L (136-145); Total Bilirubin 0.3 mg/dL (0.15-1.2); Total Protein 7.5 g/dL (6.6-8.7)
[2024-07-19 12:18] LABS: Troponin(5th) Baseline 16 ng/L (0-15)
--- NOTE | 2024-07-19 12:54 | CT_ITS ---
WS: [id number] CT ABDOMEN PELVIS TECHNIQUE: Contrast-enhanced CT of the abdomen and pelvis with coronal and sagittal reformatted images. CLINICAL INFORMATION: abd pain COMPARISON: None. DLP: 308.[address] scans at [facility] use at least one of these dose optimization techniques: automated exposure control; mA and/or kV adjustment per patient size (includes targeted exams where dose is matched to clinical indication); or iterative reconstruction. FINDINGS: Fatty liver. Mild hepatomegaly. Prior cholecystectomy. Normal portal vein and splenic vein. Small focus of increased attenuation along the the distal common bile duct. This can be followed up with ERCP or MRCP. Recommend correlation with biliary function studies. See image 21 series 3. No significant bile duct dilatation. Lung bases are well aerated. Normal GE junction. Normal pancreatic parenchymal enhancement. Celiac and SMA are patent. Adrenal glands are normal. Normal renal parenchymal enhancement. No hydronephrosis. Small RIGHT renal cyst. Mild aortic calcification. Advanced spondylitic changes lumbar spine with vacuum disc phenomenon and disc desiccation. Adrenal glands are normal. No hydronephrosis. Small fat-containing umbilical hernia. Urine distended bladder with peripheral enhancement and mild wall thickening. Recommend correlation for cystitis. Normal sigmoid colon. CT/CT abdomen pelvis w con* [id number] IMPRESSION: 1. Fatty liver. 2. Prior cholecystectomy. 3. Small focus of increased attenuation in or adjacent to the distal common bi le duct may represent a small calculus. This can be followed up on an elective basis with ERCP or MRCP. No significant bile duct dilatation. Common bile duct measures 4 to 5 mm. 4. No hydronephrosis in either kidney. 5. Urine distended bladder with peripheral enhancement. Recommend correlation for cystitis.
--- NOTE | 2024-07-19 12:59 | ECG_ITS ---
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 Measurements Intervals [place] Rate: 66 P: 82 WA: 191 QRS: 56 QRSD: 84 T: 73 QT: 386 QTc: 406 Interpretive Statements SINUS RHYTHM SEPTAL MYOCARDIAL INFARCTION , OF INDETERMINATE AGE [40+ ms Q WAVE IN V1/V2] Compared to ECG 07/19/2024 10:49:14 No significant changes Electronically Signed On 07-21-2024 23:44:57 CDT by Konrad Robbins M.D. [email or web address]
--- NOTE | 2024-07-19 13:12 | PC.PHAR ---
[facility] is [facility] but has presented his medication list.
--- NOTE | 2024-07-19 13:30 | W.ED.CHESTPA ---
HPI - Chest Pain General: Chief Complaint: Chest Pain Stated Complaint: chest pain Time Seen by Provider: 07/19/24 12:41 History of Present Illness: 63-year-old male presents with abdominal pain that went across his abdomen that was really sharp stabbing caused him to have hard time breathing felt like it went a little bit up into his chest. [facility] and [facility] sent him here for further evaluation. He is not currently having any pain at this time. Associated symptoms: Reports abdominal pain and dyspnea (Please see HPI); Deny fever(s), nausea or vomiting Related Data Home Medications ?Medication ?Instructions ?Recorded ?Confirmed albuterol sulfate 90 mcg/actuation 2 puff inhalation QID PRN 07/19/24 07/19/24 aerosol inhaler Shortness Of Breath aspirin 81 mg tablet,delayed 81 mg PO DAILY 07/19/24 07/19/24 release atorvastatin 80 mg tablet 80 mg PO QPM 07/19/24 07/19/24 fluticasone 500 mcg-salmeterol 50 1 inh inhalation BID 07/19/24 07/19/24 mcg/dose blistr powdr for inhalation (Advair Diskus) meloxicam 7.5 mg tablet 7.5 mg PO DAILY 07/19/24 07/19/24 omeprazole 40 mg capsule,delayed 40 mg PO BID 07/19/24 07/19/24 release Allergies Allergy/AdvReac Type Severity Reaction Status Date / Time grape Allergy ALGY-Swell Verified 07/19/24 10:55 Lip/Tongue/Throat honey Allergy ALGY-Anaphy Verified 07/19/24 10:55 laxis venom-wasp Allergy ALGY-Anaphy Verified 07/19/24 10:55 laxis Review of Systems Const: Denies: fever(s) or chills Card: Reports: other (Please see HPI) Resp: Reports: dyspnea (Please see HPI) GI: Reports: abdominal pain; Denies: nausea or vomiting PFSH ED PFSH: Medical History (Updated 07/19/24 @ 15:03 by Jarrod Rivas DO) No pertinent past medical history Social History Smoking and tobacco/nicotine status: current every day tobacco/nicotine user Alcohol intake: current Alcohol intake frequency: 0-2 Drinks per Day Physical Exam Const: COMMON NORMALS: no acute distress, patient oriented x3 and alert Resp: COMMON NORMALS: normal respiratory effort and clear to auscultation bilaterally AUSCULTATION: clear to auscultation bilaterally Cardio: COMMON NORMALS: regular rate and regular rhythm RATE: regular rate RHYTHM: regular rhythm GI: COMMON NORMALS: Soft to palpation PALPATION: Yes Soft to palpation and Yes Tenderness to palpation present (GI) (Mild left upper quadrant) Details: LUQ Extremity: COMMON NORMALS: normal to inspection and capillary refill normal Neuro: COMMON NORMALS: patient oriented x3, moves all extremities, no focal motor deficits and no sensory deficits noted SENSORIUM/ORIENTATION: Yes alert Psych: COMMON NORMALS: mental status grossly normal, cooperative and normal affect Course Vital Signs: Vital signs: Vital Signs Temperature 97.6 F 07/19/24 10:44 Pulse Rate 69 07/19/24 14:39 Blood Pressure 157/91 07/19/24 14:39 Pulse Oximetry 96 07/19/24 14:39 Oxygen Delivery Me thod Room Air 07/19/24 14:39 MDM - Chest Pain Medical Decision Making Patient's diagnostic studies were reviewed and interpreted by me. Patient's sodium is mildly low but otherwise no significant acute findings. Patient presented because he had a brief episode of abdominal pain shortness of breath and some chest pain. Patient had negative EKGs, 2 negative troponins. He was asymptomatic throughout his time in the ER. Patient had CT and chest x-rays were negative for any acute findings. Patient is stable and should follow-up with [facility] for further outpatient evaluation. Lab Data 07/19/24 11:49 07/19/24 11:49 Radiology Impressions Chest X-Ray 07/19/24 10:59 IMPRESSION: Stable chest without acute abnormality. Hyperexpansion. Abdomen/Pelvis CT 07/19/24 12:54 IMPRESSION: 1. Fatty liver. 2. Prior cholecystectomy. 3. Small focus of increased attenuation in or adjacent to the distal common bile duct may represent a small calculus. This can be followed up on an elective basis with ERCP or MRCP. No significant bile duct dilatation. Common bile duct measures 4 to 5 mm. 4. No hydronephrosis in either kidney. 5. Urine distended bladder with peripheral enhancement. Recommend correlation for cystitis. Laboratory Results WBC 7.74 10^3/uL (3.29-11.43) 07/19/24 11:49 RBC 4.28 10^6/uL (3.85-5.65) 07/19/24 11:49 Hgb 12.90 g/dL (11.27-16.99) 07/19/24 11:49 Hct 38.4 % (37-53) 07/19/24 11:49 MCV 89.7 fl (82-101) 07/19/24 11:49 MCH 30.1 pg (27-33) 07/19/24 11:49 MCHC 33.6 g/dL (30-55) 07/19/24 11:49 RDW 14.7 % (12.1-15.1) 07/19/24 11:49 Plt Count 257 10^3/cmm (157-399) 07/19/24 11:49 MPV 8.0 fL (7.4-10.4) 07/19/24 11:49 Neut % (Auto) 72.2 % 07/19/24 11:49 Lymph % (Auto) 15.6 % 07/19/24 11:49 [place] % (Auto) 9.4 % 07/19/24 11:49 Eos % (Auto) 1.8 % 07/19/24 11:49 Baso % (Auto) 0.5 % 07/19/24 11:49 Neut # (Auto) 5.58 10^3/uL (1.8-7.7) 07/19/24 11:49 Lymph # (Auto) 1.2 10^3/uL (0.8-4.8) 07/19/24 11:49 [place] # (Auto) 0.7 10^3/uL (0.2-0.9) 07/19/24 11:49 Eos # (Auto) 0.1 10^3/uL (0.0-0.8) 07/19/24 11:49 Baso # (Auto) 0.0 10^3/uL (0.0-0.1) 07/19/24 11:49 Nucleated RBC % (auto) 0 % 07/19/24 11:49 Nucleated RBCs # 0.0 /100WBC 07/19/24 11:49 Sodium 127 mmol/L (136-145) L 07/19/24 11:49 Potassium 4.1 mmol/L (3.5-5.1) 07/19/24 11:49 Chloride 89 mmol/L (98-107) L 07/19/24 11:49 Carbon Dioxide 26 mmol/L (22-29) 07/19/24 11:49 Anion Gap 16.1 (5-19) 07/19/24 11:49 BUN 4 mg/dL (8-23) L 07/19/24 11:49 Creatinine 0.8 mg/dL (0.7-1.2) 07/19/24 11:49 GFR Calculation 98.0 mL/min (90-130) 07/19/24 11:49 Glucose 85 mg/dL (65-115) 07/19/24 11:49 Calculated Osmolality 260 mOsm/kg (285-295) L 07/19/24 11:49 Calcium 9.5 mg/dL (8.5-10.5) 07/19/24 11:49 Total Bilirubin 0.3 mg/dL (0.15-1.2) 07/19/24 11:49 AST 43 U/L (0-40) H 07/19/24 11:49 ALT 29 U/L (0-41) 07/19/24 11:49 Alkaline Phosphatase 138 U/L (40-130) H 07/19/24 11:49 Troponin T Baseline 16 ng/L (0-15) H 07/19/24 11:49 Troponin T 120 Minute 14.49 ng/L (0-15) 07/19/24 13:41 Delta Troponin T -1.51 ABS# (0-10) L 07/19/24 13:41 Total Protein 7.5 g/dL (6.6-8.7) 07/19/24 11:49 Albumin 4.3 g/dL (3.5-5.2) 07/19/24 11:49 Globulin 3.2 g/dL (1.3-4.6) 07/19/24 11:49 Lipase 46 U/L (13-60) 07/19/24 11:49 Urine Color Yellow (Yellow) 07/19/24 14:30 Urine Appearance Clear (CLEAR) 07/19/24 14:30 Urine pH 7 (5-7) 07/19/24 14:30 Ur Specific [place] 1.005 (1.005-1.030) 07/19/24 14:30 Urine Protein Neg (Negative) 07/19/24 14:30 Urine Glucose (UA) Norm (Normal) 07/19/24 14:30 Urine Ketones Negative (Negative) 07/19/24 14:30 Urine Blood Neg (Negative) 07/19/24 14:30 Urine Nitrate Negative (Negative) 07/19/24 14:30 Urine Bilirubin Neg (Negative) 07/19/24 14:30 Urine Urobilinogen Norm mg/dL (Negative) 07/19/24 14:30 Ur Leukocyte Esterase Negative (Negative) 07/19/24 14:30 Amorphous Sediment Not Reportable 07/19/24 14:30 All radiology interpretation(s) finalized by discharge Discharge Plan Discharge Patient Disposition: Home Clinical Impression: Atypical chest pain, Abdominal pain Condition: Stable Prescriptions: No Action atorvastatin 80 mg Tablet 80 mg PO QPM omeprazole 40 mg Capsule,Delayed Release(Dr/Ec) 40 mg PO BID meloxicam 7.5 mg Tablet 7.5 mg PO DAILY fluticasone propion-salmeterol [Advair Diskus] 500-50 mcg/dose Blister With Device 1 inh INHALATION BID albuterol sulfate 90 mcg/actuation Hfa Aerosol Inhaler 2 puff INHALATION QID PRN (Reason: Shortness Of Breath) aspirin [Aspir-81] 81 mg Tablet,Delayed Release (Dr/Ec) 81 mg PO DAILY Discharge Orders: Discharge ED (Routine); Ordered 07/19/24 Ordered By: Jarrod Rivas Discharge Diet: Usual diet Discharge Activity: Resume usual activity Patient Instructions: Chest Pain - Noncardiac, Abdominal Pain (ED), Opioid Safety, Pain Management Activity Restrictions/Additional Instructions: [facility] and consider stress test if they feel that that is indicated. Continue current medications and recommendations from the [facility]. 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
[2024-07-19 13:31] VITALS: BP 153/87; PULSE 76; O2SAT 96
[2024-07-19] MEDS: iohexol 350 mg/mL 500 mL Btl (per mL) IV (13:32)
[2024-07-19 14:13] LABS: Troponin 5 2HR 14.49 ng/L (0-15)
[2024-07-19 14:14] LABS: Troponin 5 2HR Delta -1.51 ABS# (0-10)
[2024-07-19 14:39] VITALS: BP 157/91; PULSE 69; O2SAT 96
[2024-07-19 14:50] LABS: Add Urine Microscopic? NO
[2024-07-19 14:56] LABS: Add Urine Culture? No; Bilirubin Urine Neg (Negative); Blood Urine Neg (Negative); Charge for UA Resulting for Rev; Glucose Urine UA Norm (Normal); Ketones Urine Negative (Negative); Leukocyte Esterase Urine Negative (Negative); Nitrate Urine Negative (Negative); Protein Urine Neg (Negative); Specific Gravity, Urine 1.005 (1.005-1.030); Urine Appearance Clear (CLEAR); Urine Color Yellow (Yellow); Urobilinogen Urine Norm (Negative); pH Urine 7 (5-7)
[2024-07-19 15:21] VITALS: BP 133/71; PULSE 60; O2SAT 98
== END 2024-07-19 15:22 | disposition home or self-care (01) ==
PROVIDERS: Physician Assistant; Emergency Provider Student in an Organized Health Care Education/Training Program
DX: R07.89 Other chest pain (principal); R10.9 Unspecified abdominal pain; Z79.82 Long term (current) use of aspirin; Z72.0 Tobacco use
CPT/HCPCS: 36415; 71045; 74177; 80053; 81003; 83690; 84484; 85025; 93005; 99285